=== PATIENT | male | born 1965 | race Two or more races ===

== ENCOUNTER 2024-12-28 14:51 | Outpatient (AMB) | payer OTHER, SELFPAY ==
--- NOTE | 2024-12-28 15:08 | MHC.PC.OV ---
Vital Signs 12/28/24 15:14 Height 6 ft 1 in Weight 215 lb 2 oz BMI 28.4 BP 123/77 Blood Pressure Location Lt brachial Position Sitting Respiration 12 Pulse 93 Pulse Source Pulse Oximeter Temp 97.3 F Temp Source Temporal Artery Scan Pulse Oximetry (%) 96 Oxygen Delivery Method Room Air Intake Visit Reasons: [facility] // PE Intake Note: New patient to establish care and requesting Physical Rn First Assist Required: No Allergies No Known Allergies Allergy (Verified 12/28/24 15:10) Medication List - Last Reconciled 12/28/24 by Suman Casey MD pantoprazole 40 mg PO DAILY Tobacco use date assessed: 12/28/24 Dental Screening Dental Screen Date: 12/28/24 Did you have a dental visit in the last 12 months?: No Did you have a dental problem in the last 6 months where you did not have access to dental care?: No Was dental information given to patient?: Patient has dentist HPI [facility] // PE HPI Details New Patient? ?? Prior PCP:? No PCP x 10 yrs Last office visit/CPE:? 10 yrs Acute issue(s):? Drinking issues and he is concerned. ?? PMHx:? Alcoholism, Asthma, Carpal Tunnel, Acid Reflux SurgHx:? Carpal Tunnel FHx:?Mom: Alzheimers. Dad: None SocHx: Quit cigs 20 yrs ago. EtOH: up to 5 dr per day. MJ Rarely. No other drugs Anx/Dep screening neg but pt feels overwhemed sometimes. Had tried Zoloft but caused drowsiness. [facility] Medical History No pertinent family history Asthma Surgical History History of carpal tunnel surgery Social History (Updated 12/28/24 @ 15:18 by Linda Siddiqi MA) Household Members: Spouse Both parents involved: No Caregiver staying overnight: No Housing: House Are you a primary critical care transport nurse to a significant other at home: No Do you presently have visiting nurse or other home services: No 75 years or older and lives alone: No Alcohol intake: current Alcohol intake frequency: a few times a week Patient Tobacco Use Status: Never used Tobacco e-Cigarette/Vaping Use: Never Used Second Hand Smoke Exposure: No service: No Current occupational status: employed Current occupation: self employed Cognitive needs: No Hearing needs: No Vision needs: Yes (wear glasses) Questionnaire PHQ-9 Over the last 2 weeks, how often have you been bothered by any of the following problems? 1. Little interest or pleasure in doing things: not at all 2. Feeling down, depressed, or hopeless: not at all 3. Trouble falling or staying asleep, or sleeping too much: not at all 4. Feeling tired or having little energy: not at all 5. Poor appetite or overeating: not at all 6. Feeling bad about yourself - or that you are a failure or have let yourself or your family down: not at all 7. Trouble concentrating on things, such as reading the newspaper or watching television: not at all 8. Moving or speaking so slowly that other people could have noticed. Or the opposite - being so fidgety or restless that you have been moving around a lot more than usual: not at all 9. Thoughts that you would be better off or of hurting yourself in some way: not at all Total score: 0 Depression Screening Interpretation: Negative Depression Screening Done: Yes 20998 - PHQ-9 Billing: Yes Source: Developed by Drs. Yordy Doughrety, Cris Jasmine, Brian Venegas and colleagues, with an educational javi from [email or web address] Thrive Questionnaire Date Thrive assessed: 12/28/24 I am a: Patient What is your living situation today?: I have a steady place to live Within the past 12 months, did the food you bought not last and you didn't have the money to get more?: Never true Within the past 12 months, did you worry whether your food would run out before you got money to buy more?: Never true Do you have trouble paying for medicines?: No Do you have trouble getting transportation to medical appointments?: No Do you have trouble paying your heating and electricity bill?: No Do you have trouble taking care of your child, family member or friend?: No Do you have trouble with day-to-day activities such as bathing, preparing meals, shopping, managing finances, etc.?: No Are you currently unemployed and looking for a job?: No Are you interested in more education?: No Please select the resources that you would like help with: None Currently or been in a relationship where the following occur: No concerns reported THRIVE Score: 0 AUDIT C Alcohol Use Questionnaire (AUDIT-C) 1. How often do you have a drink containing alcohol?: 4 or more times a week 2. How many drinks containing alcohol do you have on a typical day when you are drinking?: 3 or 4 3. How often do you have six or more drinks on one occasion?: Weekly Total Score: 8 JANIYA-7 AMB Questionnaire JANIYA-7 Date JANIYA - 7 assessed: 12/28/24 Feeling nervous, anxious, or on edge: 0 = Not at all Not being able to stop or control worryin = Not at all Worrying too much about different things: 0 = Not at all Trouble relaxin = Not at all Being so restless that it is hard to sit still: 0 = Not at all Becoming easily annoyed or irritable: 1 = Several days Feeling afraid as if something awful might happen: 0 = Not at all Total JANIYA-7 score (0-4 normal; 5-9 mild; 10-14 moderate; 15-21 severe): 1 Source: Developed by Drs. Yordy Dougherty, Cris Jasmine, Brian Venegas and colleagues, with an educational javi from [email or web address]. JANIYA-7 Assessment Billing JANIYA-7 Assessment Tool: JANIYA-7 Assessment 91361 Review of Systems Const Denies chills, Denies fatigue, Denies fever(s), Denies headache(s) and Denies weakness ENT Denies dizziness and Denies headache(s) Card Denies chest pain, Denies lightheadedness, Denies dyspnea and Denies other (Palpitations) Resp Denies cough, Denies dyspnea, Denies wheezing and Denies other ( shortness of breath) Musc Denies numbness and Denies tingling Neuro Denies dizziness, Denies headache(s), Denies numbness, Denies tingling, Denies paresthesias and Denies weakness Psych Denies anxiety and Denies depression Endo Denies fatigue Aller/Immun Denies wheezing Physical exam (Primary Care) Vital Signs: Last Vital Signs Temp 97.3 F 12/28/24 15:14 Pulse 93 12/28/24 15:14 Resp 12 12/28/24 15:14 BP 123/77 12/28/24 15:14 Pulse Ox 96 12/28/24 15:14 Oxygen Delivery Method Room Air 12/28/24 15:14 BMI result Body Mass Index 28.4 Tobacco/Smoking Status: Tobacco use Status Tobacco use date assessed 12/28/24 12/28/24 15:12 Patient Tobacco Use Status Never used Tobacco 12/28/24 15:18 e-Cigarette/Vaping Use Never Used 12/28/24 15:18 PHQ-9: PHQ-9 Score PHQ-9: Total score 0 12/28/24 15:19 Depression Screening Interpretation: Negative Thrive Assessment: Date of Thrive Assessment Date Thrive assessed 12/28/24 12/28/24 15:12 Currently or been in a relationship where the following occur: No concerns reported Const General: no acute distress and well developed Nutritional Appearance: well nourished Orientation/consciousness: patient oriented x3 HENMT Head: Yes normocephalic and Yes atraumatic Eyes General: appearance normal, both eyes and all related structures Pupils: Equal, round and reactive pupils present EOM: EOMs intact bilaterally Resp Effort & Inspection: normal respiratory effort Auscultation: clear to auscultation bilaterally Cardio Rate: regular rate Rhythm: regular rhythm Heart sounds: S1 normal heart sound present, S2 normal heart sound present, no gallops, no murmurs and no rubs Neuro General: patient oriented x3 and gait normal Cranial nerves: Yes Equal, round and reactive pupils present Psych Affect: normal affect Coding Level of Care Code New Pt Level 4 (49031) Diagnoses Alcohol abuse F10.10 Asthma J45.909 Anxiety F41.9 GERD (gastroesophageal reflux disease) K21.9 Carpal tunnel syndrome G56.00 Laboratory exam ordered as part of routine general medical examination Z00.00 Additional Codes JANIYA-7 Assessment Billing - JANIYA-7 Assessment Tool: JANIYA-7 Assessment 59760 ([id number]) PHQ-9 - 78818 - PHQ-9 Billing: Yes ([id number]) Assessment & Plan Assessment & Plan (1) Alcohol abuse: Code(s): F10.10 - Alcohol abuse, uncomplicated Category: Social Hx Plan: Patient drinking about 5 drinks per day. Will have him work on weaning down and he can try some clonidine for mild withdrawal symptoms We did discuss the [facility] but he does not try that yet. Will follow-up at next visit (2) Asthma: Code(s): J45.909 - Unspecified asthma, uncomplicated Category: Medical Plan: History of asthma Lungs are clear today Stable (3) Anxiety: Code(s): F41.9 - Anxiety disorder, unspecified Category: Medical Plan: History of anxiety and patient has tried Zoloft in the past which he did not like. Using clonidine for withdrawal symptoms in his may help Anxiety as well. Offered a therapist but patient says he has had 1 in the past and that it stopped being helpful. He will let me know if he changes his mind (4) GERD (gastroesophageal reflux disease): Code(s): K21.9 - Gastro-esophageal reflux disease without esophagitis Category: Medical Plan: History of GERD and uses pantoprazole Continue pantoprazole (5) Carpal tunnel syndrome: Code(s): G56.00 - Carpal tunnel syndrome, unspecified upper limb Category: Medical Plan: S/p carpal tunnel surgery Stable (6) Laboratory exam ordered as part of routine general medical examination: Code(s): Z00.00 - Encounter for general adult medical examination without abnormal findings Category: Medical Plan: Check labs Orders: Orders Comprehensive [place]. Panel Fast Today Z00.00 - Encounter for general adult medical examination without abnormal findings UA CC w/rflx Micro + Cult Today Z00.00 - Encounter for general adult medical examination without abnormal findings Complete Blood Count Auto Diff Today Z00.00 - Encounter for general adult medical examination without abnormal findings Microalbumin, Random (w Creat) Today I10 - Essential (primary) hypertension Lipid Panel Today Z00.00 - Encounter for general adult medical examination without abnormal findings Prostate Specific Antigen Scr Today Z12.5 - Encounter for screening for malignant neoplasm of prostate TSH reflex Free T4 Today Z00.00 - Encounter for general adult medical examination without abnormal findings Medications: New clonidine HCl 0.1 mg PO TID PRN 90 tabs 0RF withdrawal symptoms/Anxiety Symptoms 30 days
[2024-12-28 15:14] VITALS: BP 123/77; PULSE 93; RESP 12; TEMP 36.3; O2SAT 96; BMI 28.4
--- OUTSIDE RECORDS SUMMARY | 2024-12-28 15:43 | XMS_ITS | Clinical Summary ---
Author Organization [facility] [address] Address [address] [place] [address] Phone Care Team Providers Care Log Chipper Operator Name Role Phone Lynnette Goel MD Primary Care Provider Allergies Active Allergy Reactions Criticality Noted Date Comments Other 09/24/2010 Other Reaction(s): Runny Nose/Rhinitis Seasonal Allergies Medications naltrexone (DEPADE) 50 mg tablet Take 1 Tablet by mouth daily. Dx alcohol dependence 3 Active fluticasone HFA (FLOVENT HFA) 220 mcg/actuation inhaler Inhale 2 Puffs into the lungs 2 times daily. 3 Active albuterol HFA (PROAIR HFA ; PROVENTIL HFA ; VENTOLIN HFA) 90 mcg/actuation inhaler Inhale 2 puffs by mouth if needed. 4 Active albuterol 2.5 mg /3 mL (0.083 %) nebulizer solution Take 3 mL (2.5 mg total) by nebulization if needed. 4 Active ibuprofen (ADVIL,MOTRIN) 200 mg tablet Take 4 tablets (800 mg total) by mouth every 8 (eight) hours if needed for moderate pain. Active pantoprazole (PROTONIX) 40 mg EC tablet Take 1 tablet (40 mg total) by mouth 1 (one) time each day. 90 tablet 5 Active Active Problems Problem Noted Date Diagnosed Date Toenail fungus 07/30/2024 Alcohol dependence (CMS/HCC V24, CMS/HCC V28) GERD with esophagitis 01/28/2020 Positive UZAIR (antinuclear antibody) 01/23/2017 Carpal tunnel syndrome, bilateral 01/16/2017 PVD (peripheral vascular disease) ([facility] V24) 05/22/2016 Groin mass 09/14/2010 Overweight 08/29/2010 Depression 07/18/2008 Overview (06/13/2024): No suicide attempts, no hospitalzations Allergic rhinitis 10/12/2005 Asthma 10/12/2005 Immunizations Name Administration Dates Next Due H1N1 Inj Preservative Free 05/10/2009 Influenza trivalent, with pr eservative (Fluzone; Afluria) 6mo and older 04/14/2012,05/10/2009 Td, Unspecified 02/02/2004 Tdap Tetanus diptheria acell ular pertussis (Boostrix; Adacel) 7yo and older 10/22/2013 Surgical History Surgery Date Site/Laterality Comments COLONOSCOPY 2016 PROCEDURE: HISTORICAL COLONOSCOPY; COMMENT: no polyps UPPER GASTROINTESTINAL ENDOSCOPY 02/21/2020 PROCEDURE: [place] UPPER GI ENDOSCOPY PERFORMED; COMMENT: 2 cm hiatal hernia, otherwise normal findings on PPI treatment. CARPAL TUNNEL RELEASE Bilateral PROCEDURE: HISTORICAL CARPAL TUNNEL REL VASECTOMY PROCEDURE: [place] VASECTOMY UNI/BI SPX W/POSTOP SEMEN EXAMS Medical History Medical History Date Comments Unspecified asthma(493.90) 10/12/2005 DX:Un specified asthma(493.90) Allergic rhinitis, cause unspecified 10/12/2005 DX:Allergic rhinitis, cause unspecified Alcohol dependence ([facility] V24, [facility] V28) DX:Alcohol dependence ([facility]) Right arm pain 12/12/2015 DX:Right arm kim n PVD (peripheral vascular dis ease) ([facility] V24) 05/22/2016 DX:PVD (peripheral vascular disease) ([facility]) Family History Medical History Relation Name Comments Arthritis Father Blindness Neg Hx Cataracts Neg Hx Colon cancer Neg Hx Esophageal cancer Neg Hx Glaucoma Neg Hx Macular degeneration Neg Hx Stomach cancer Neg Hx Strabismus Neg Hx Relation Name Status Comments Brother 1 Alive depression Brother 2 Alive depression Brother 3 Alive depression Brother 4 Alive Father (Age 82) Mother (Age 83) dementia Sister 1 Alive depression Sister 2 Alive Son 1 Alive depression Son 2 Alive Social History Tobacco Use Types Packs/Day Years Used Date Smoking Tobacco: Former Cigarettes Q uit: 05/19/2000 Smokeless Tobacco: Never Alcohol Use Standard Drinks/Week Comments Yes 18 (1 standard drink = 0.6 oz pu re alcohol) Sex and Gender Information Value Date Recorded Sex Assigned at Not on file Legal Sex Male 2:59 AM EST Gender Identity Not on file Sexual Orientation Not on file Obstetrics History Last Filed Vital Signs Vital Sign Reading Time Taken Comments Blood Pressure 132/83 07/30/2024 10:47 AM EDT Pulse 87 07/30/2024 10:47 AM EDT Temperature 36.8 C (98.2 F) 07/30/2024 10:47 AM EDT Respiratory Rate - - Oxygen Saturation - - Inhaled Oxygen Concentration - - Weight 104 kg (229 lb) 07/30/2024 10:47 AM EDT Height 185.4 cm (6' 1 ) 07/30/2024 10:47 AM EDT Body Mass Index 30.21 07/30/2024 10:47 AM EDT Plan of Treatment Health Maintenance Due Date Last Done Comments Hepatitis A Vaccines (1 of 2 - Risk 2-dose series) 1985 Hepatitis B Vaccines (1 of 3 - 19+ 3-dose series) 1985 Pneumococcal Vaccine: 50+ Years (1 of 2 - PCV) 1985 Social Influencers of Health Screening 04/21/2022 COVID-19 Vaccine (3 - season) 2024 06/05/2021, 10/29/2020 Depression Screening 05/19/2024 Influenza Vaccine (#1) 2025 8, 04/14/2012, 05/10/2009, Additional history exists Colorectal Cancer Screening: Colonoscopy 03/14/2027 03/14/2017 Cholesterol Screening (Lipid Panel) 11/23/2027 11/22/2022 DTaP,Tdap,and Td Vaccines (4 - Td or Tdap) 07/27/2034 07/27/2024, 10/22/2013, 02/02/2004 HIV Screening Completed 03/26/2019 Hepatitis C Screening Completed 03/26/2019 Zoster Vaccines Completed 01/07/2022, 09/24/2021 HIB Vaccines Aged Out No longer eligi ble based on patient's age to complete this topic HPV Vaccines Aged Out No longer eligi ble based on patient's age to complete this topic IPV Vaccines Aged Out No longer eligi ble based on patient's age to complete this topic MMR Vaccines Aged Out No longer eligi ble based on patient's age to complete this topic Meningococcal ACWY Vaccine Aged Out N o longer eligible based on patient's age to complete this topic Meningococcal B Vaccine Aged Out No l onger eligible based on patient's age to complete this topic RSV Immunization Patients Under 20 months Aged Out No longer eligible based on patient's age to complete this topic Varicella Vaccines Aged Out No longer eligible based on patient's age to complete this topic Procedures Procedure Name Priority Date/Time Associated Diagnosis Comments LIPID PANEL Routine 11/22/2022 HEPATITIS C SCREENING Routine 03/26/2019 HIV SCREENING Routine 03/26/2019 COLONOSCOPY Routine 03/14/2017 from Last 3 Months or Most Recently Relevant to Health Maintenance Results * (ABNORMAL) Lipid panel (11/22/2022) [facility] LDL/HDL Ratio 3 0 - 4 Triglycerides 197(A) 0 - 150 mg/dL Cholesterol 209(A) 0 - 200 mg/dL HDL 61 >=40 mg/dL LDL Cholesterol 109(A) 0 - 100 mg/dL Blood Venous blood specimen / Unknown Historical Provider LAB BLOOD ORDERABLES Jessica l Result * HIV Screening (03/26/2019) [facility] HIV Screening abstracted Historical Provider HEALTH MAINTENANCE Final Result * Hepatitis C Screening (03/26/2019) [facility] Hepatitis C Screening abstracted Historical Provider HEALTH MAINTENANCE Final Result * Colonoscopy (03/14/2017) [facility] Colonoscopy no interpretation , abstracted Anatomical Region Laterality Modality Other Historical Provider HEALTH MAINTENANCE Final Result from Last 3 Months or Most Recently Relevant to Health Maintenance Insurance [facility] Care Teams Log Chipper Operator Relationship Specialty Start Date End Date Lynnette Goel MD [address] [place] [address] [phone] PCP - General Internal Medicine 09/07/24
== END 2024-12-28 15:45 | disposition home or self-care (01) ==
PROVIDERS: PCP Family Medicine; Visit Provider Family Medicine
DX: F10.10 Alcohol abuse, uncomplicated (principal); J45.909 Unspecified asthma, uncomplicated; F41.9 Anxiety disorder, unspecified; K21.9 Gastro-esophageal reflux disease without esophagitis; G56.00 Carpal tunnel syndrome, unspecified upper limb; Z00.00 Encounter for general adult medical examination without abnormal findings

== ENCOUNTER → 2024-12-28 14:51 | Outpatient (BNVA) | payer SELFPAY | PROVIDERS: Visit Provider Family Medicine | DX: Z00.00 Encounter for general adult medical examination without abnormal findings (principal); F10.10 Alcohol abuse, uncomplicated; J45.909 Unspecified asthma, uncomplicated; F41.9 Anxiety disorder, unspecified; K21.9 Gastro-esophageal reflux disease without esophagitis; G56.00 Carpal tunnel syndrome, unspecified upper limb | CPT/HCPCS: 96127 ==

== ENCOUNTER 2025-01-03 13:05 | Outpatient (REF) | payer OTHER, SELFPAY ==
--- OUTSIDE RECORDS SUMMARY | 2025-01-03 14:01 | XMS_ITS | Clinical Summary ---
Author Organization [facility] [address] [facility] [address] Address [address] [place] [address] Phone Care Team Providers Care Hand Stapler Name Role Phone Lynnette Goel MD Primary [...] syndrome, bilateral 01/16/2017 PVD [place]peripheral vascular disease) [place] [place] 05/22/2016 Groin mass 09/14/2010 Overweight 08/29/2010 [...] no polyps UPPER GASTROINTESTINAL ENDOSCOPY 02/21/2020 PROCEDURE: [place] UPPER GI ENDOSCOPY PERFORMED; COMMENT: 2 cm hiatal hernia, otherwise normal findings on PPI treatment. CARPAL TUNNEL RELEASE Bilateral PROCEDURE: HISTORICAL CARPAL TUNNEL REL VASECTOMY PROCEDURE: [place] VASECTOMY UNI/BI SPX W/POSTOP SEMEN EXAMS Medical History Medical History Date Comments Unspecified asthma(493.90) 10/12/2005 DX:Un specified asthma(493.90) Allergic rhinitis, cause unspecified 10/12/2005 DX:Allergic rhinitis, cause unspecified Alcohol dependence ([facility] [place], [facility] V28) DX:Alcohol dependence ([facility]) Right arm pain 12/12/2015 DX:Right arm kim n PVD (peripheral vascular dis ease) ([facility] [place]) 05/22/2016 DX:PVD (peripheral vascular disease) ([facility]) Family History Medical History Relation Name Comments [...] Maintenance Results * (ABNORMAL) Lipid panel (11/22/2022) [facility] LDL/HDL Ratio 3 0 - 4 Triglycerides 197(A) 0 - 150 mg/dL Cholesterol 209(A) 0 - 200 mg/dL HDL 61 >=40 mg/dL LDL Cholesterol 109(A) 0 - 100 mg/dL Blood Venous blood specimen / Unknown Historical Provider LAB BLOOD ORDERABLES Jessica l Result * HIV Screening (03/26/2019) [facility] HIV Screening abstracted Historical Provider HEALTH MAINTENANCE Final Result * Hepatitis C Screening (03/26/2019) [facility] Hepatitis C Screening abstracted Historical Provider HEALTH MAINTENANCE Final Result * Colonoscopy (03/14/2017) [facility] Colonoscopy no interpretation , abstracted Anatomical Region Laterality Modality Other Historical Provider HEALTH MAINTENANCE Final Result from Last 3 Months or Most Recently Relevant to Health Maintenance Insurance [facility] Care Teams Hand Stapler Relationship Specialty Start Date End Date Lynnette Goel MD [address] [place] [address] [phone] PCP - General Internal Medicine 09/07/24
[2025-01-03 18:15] LABS: MANUAL DIFF FLAG NO
[2025-01-03 18:19] LABS: Hematocrit 39.8 % (42.0-52.0); Hemoglobin 13.6 g/dl (14.0-18.0); Imm Gran Abs Auto 0.02 X10*3/uL (0.00-0.03); Imm Gran Pct Auto 0.4 % (0.0-0.4); Lymphocytes Absolute Auto 1.9 X10*3/uL (1.2-4.9); Mean Corpuscular HGB Conc 34.2 g/dl (31.0-36.0); Mean Corpuscular Hemoglobin 33.3 pg (27.0-33.0); Mean Corpuscular Volume 97.5 fL (80.0-98.0); NRBC Abs Auto 0.000 X10*3/uL (0.0-0.012); NRBC Pct Auto 0.0 /100WBC (0.0-0.2); Platelet Count 267 X10*3/uL (160-400); Red Blood Count 4.08 X10*6/uL (4.60-5.80); White Blood Count 5.5 X10*3/uL (4.8-10.8)
[2025-01-03 18:21] LABS: Appearance Urine Turbid; Glucose Urine UA Negative (Negative); PH 5.5 (5.0-9.0); Specific Gravity - Urine 1.025 (1.005-1.025)
[2025-01-03 18:37] LABS: Alanine Aminotransferase 60 U/L (0-40); Albumin Level 4.5 g/dL (3.5-5.0); Alkaline Phosphatase 52 U/L (39-117); Anion Gap 12 (12-20); Aspartate Amino Transferase 43 U/L (5-37); Blood Urea Nitrogen 12 mg/dL (9-16); Calcium 9.1 mg/dL (8.4-10.2); Carbon Dioxide 27 mmol/L (22-29); Chloride 107 mmol/L (96-108); Cholesterol 224 mg/dL (<200); Estimated Glomerular Filt Rate > 60; HDL Cholesterol 46 mg/dL (>40); Potassium 4.1 mmol/L (3.3-5.1); Sodium 142 mmol/L (135-145); Total Protein 7.2 g/dL (6.5-8.0); Triglycerides 304 mg/dL (<150)
[2025-01-03 18:45] LABS: Microalbum/Creatinine Ratio Ur 5.2 ug/mg cr (<30)
== END 2025-01-03 13:06 | disposition home or self-care (01) ==
LOC: HO.WFDLDS 13:05
PROVIDERS: Visit Provider Family Medicine
DX: Z00.00 Encounter for general adult medical examination without abnormal findings (principal); Z12.5 Encounter for screening for malignant neoplasm of prostate; I10 Essential (primary) hypertension
CPT/HCPCS: 36415; 80053; 80061; 81003; 82043; 82570; 84153; 84443; 85025

== ENCOUNTER 2025-04-08 13:37 | Outpatient (AMB) | payer OTHER, SELFPAY ==
--- NOTE | 2025-04-08 13:45 | MHC.PC.OV ---
Vital Signs 04/08/25 13:51 Height 6 ft 1 in Weight 220 lb 8 oz BMI 29.1 BP 110/70 Blood Pressure Location Rt brachial Position Sitting Respiration 16 Pulse 108 H Pulse Source Pulse Oximeter Temp 99.4 F Temp Source Oral Pulse Oximetry (%) 98 Oxygen Delivery Method Room Air Intake Visit Reasons: CPE with f/u labs and health maint. 30 mins Intake Note: patient is scheduled for CPE Parking Enforcement Manager Required: No Funeral Sales Manager: Present Accompanied by: Spouse Allergies No Known Allergies Allergy (Verified 04/08/25 13:47) Tobacco use date assessed: 04/08/25 Dental Screening Dental Screen Date: 04/08/25 Did you have a dental visit in the last 12 months?: Yes Did you have a dental problem in the last 6 months where you did not have access to dental care?: Yes Was dental information given to patient?: No HPI CPE with f/u labs and health maint. 30 mins HPI Details 60 y/o male presents for a CPE with f/u labs and health maint. Labs drawn 01/03/25. Reviewed labs with pt. Mild anemia. Elevated liver enzymes - AST 43, ALT 60. Triglycerides 304. TC 224. LDL 118. HDL 46. PSA 1.18. Fasting glucose 105. HPI Comments History of Present Illness Details Documentation assistance for Suman Casey MD, was provided by Freddie Mejia, Information Clerk Broker[employer] on 04/08/2025 at 2:13 PM EST. I, Dr. Casey, have read, observed, and verified documentation. [facility] Medical History No pertinent family history Asthma Surgical History History of carpal tunnel surgery Social History Household Members: Spouse Both parents involved: No Caregiver staying overnight: No Housing: House Are you a primary care support representative to a significant other at home: No Do you presently have visiting nurse or other home services: No 75 years or older and lives alone: No Alcohol intake: current Alcohol intake frequency: a few times a week Patient Tobacco Use Status: Never used Tobacco e-Cigarette/Vaping Use: Never Used Second Hand Smoke Exposure: No service: No Current occupational status: employed Current occupation: self employed Cognitive needs: No Hearing needs: No Vision needs: Yes (wear glasses) Questionnaire PHQ-9 Over the last 2 weeks, how often have you been bothered by any of the following problems? 1. Little interest or pleasure in doing things: not at all 2. Feeling down, depressed, or hopeless: not at all 3. Trouble falling or staying asleep, or sleeping too much: several days 4. Feeling tired or having little energy: several days 5. Poor appetite or overeating: not at all 6. Feeling bad about yourself - or that you are a failure or have let yourself or your family down: not at all 7. Trouble concentrating on things, such as reading the newspaper or watching television: not at all 8. Moving or speaking so slowly that other people could have noticed. Or the opposite - being so fidgety or restless that you have been moving around a lot more than usual: not at all 9. Thoughts that you would be better off or of hurting yourself in some way: not at all Total score: 2 Depression Screening Interpretation: Negative Depression Screening Done: Yes 42325 - PHQ-9 Billing: Yes Source: Developed by Drs. Yordy Dougherty, Cris Jasmine, Brian Venegas and colleagues, with an educational javi from [employer]. Thrive Questionnaire Date Thrive assessed: 04/08/25 I am a: Patient What is your living situation today?: I have a steady place to live Within the past 12 months, did the food you bought not last and you didn't have the money to get more?: Never true Within the past 12 months, did you worry whether your food would run out before you got money to buy more?: Never true Do you have trouble paying for medicines?: No Do you have trouble getting transportation to medical appointments?: No Do you have trouble paying your heating and electricity bill?: No Do you have trouble taking care of your child, family member or friend?: No Do you have trouble with day-to-day activities such as bathing, preparing meals, shopping, managing finances, etc.?: No Are you currently unemployed and looking for a job?: No Are you interested in more education?: No Please select the resources that you would like help with: None Currently or been in a relationship where the following occur: No concerns reported THRIVE Score: 0 AUDIT C Alcohol Use Questionnaire (AUDIT-C) 1. How often do you have a drink containing alcohol?: 4 or more times a week 2. How many drinks containing alcohol do you have on a typical day when you are drinking?: 5 or 6 3. How often do you have six or more drinks on one occasion?: Weekly Total Score: 9 Score Reviewed/Action Taken: Yes JANIYA-7 AMB Questionnaire JANIYA-7 Date JANIYA - 7 assessed: 04/08/25 Feeling nervous, anxious, or on edge: 0 = Not at all Not being able to stop or control worryin = Not at all Worrying too much about different things: 0 = Not at all Trouble relaxin = Not at all Being so restless that it is hard to sit still: 0 = Not at all Becoming easily annoyed or irritable: 3 = Nearly every day Feeling afraid as if something awful might happen: 0 = Not at all Total JANIYA-7 score (0-4 normal; 5-9 mild; 10-14 moderate; 15-21 severe): 3 Source: Developed by Drs. Yordy Dougherty, Cris Jasmine, Brian Venegas and colleagues, with an educational javi from [employer]. JANIYA-7 Assessment Billing JANIYA-7 Assessment Tool: JANIYA-7 Assessment 46896 ACT Questionnaire In the past 4 weeks, how much of the time did your asthma keep you from getting as much done at work, school or at home?: None of the time During the past 4 weeks, how often have you had shortness of breath?: 3-6 times a week During the past 4 weeks, how often did your asthma symptoms wake you up at night or earlier than usual in the morning?: Not at all During the past 4 weeks, how often have you had to use your rescue inhaler or nebulizer medication?: 1-2 times a week How would you rate your asthma control during the past 4 weeks?: Somewhat controlled ACT Interpretation: Positive Score: 18 Review of Systems Const Denies chills, Denies fatigue, Denies fever(s), Denies headache(s) and Denies weakness Eyes Denies change in vision ENT Denies dizziness, Denies headache(s), Denies hearing loss, Denies nasal congestion, Denies sinus pain, Denies sinus pressure and Denies sore throat Card Denies chest pain, Denies lightheadedness, Denies dyspnea and Denies other (palpitations) Resp Denies cough, Denies dyspnea and Denies wheezing GI Denies abdominal pain, Denies melena, Denies hematochezia, Denies change in bowel habits, Denies dyspepsia and Denies nausea Denies hematuria and Denies dysuria Musc Denies abnormal gait, Denies myalgias, Denies arthralgias, Denies numbness and Denies tingling Skin/Breast Denies rash, Denies unusual bruising and Denies wounds Neuro Denies abnormal gait, Denies dizziness, Denies headache(s), Denies memory loss, Denies numbness, Denies Sensory deficit (Neuro), Denies tingling and Denies weakness Psych Denies anxiety, Denies depression and Denies memory loss Endo Denies cold intolerance, Denies fatigue, Denies heat intolerance, Denies polydipsia and Denies polyuria Elvis/Lymph Denies easy bleeding and Denies easy bruising Aller/Immun Denies wheezing Physical exam (Primary Care) Vital Signs: Last Vital Signs Temp 99.4 F 04/08/25 13:51 Pulse 108 H 04/08/25 13:51 Resp 16 04/08/25 13:51 BP 110/70 04/08/25 13:51 Pulse Ox 98 04/08/25 13:51 Oxygen Delivery Method Room Air 04/08/25 13:51 BMI result Body Mass Index 29.1 Tobacco/Smoking Status: Tobacco use Status Tobacco use date assessed 04/08/25 04/08/25 13:55 Patient Tobacco Use Status Never used Tobacco 04/08/25 13:55 e-Cigarette/Vaping Use Never Used 04/08/25 13:55 PHQ-9: PHQ-9 Score PHQ-9: Total score 2 04/08/25 13:55 Depression Screening Interpretation: Negative Thrive Assessment: Date of Thrive Assessment Date Thrive assessed 04/08/25 04/08/25 13:55 Currently or been in a relationship where the following occur: No concerns reported Const General: no acute distress, well developed, alert and awake Nutritional Appearance: well nourished Orientation/consciousness: patient oriented x3 HENMT Head: Yes normocephalic and Yes atraumatic Ears: hearing grossly normal bilaterally and TM's normal bilaterally General nose exam: Normal external nose present and Normal nares present Mouth: Normal oral and palatal mucosa present and moist mucous membranes Teeth and gingiva: dentition normal Throat: Yes posterior oropharynx normal Eyes General: appearance normal, both eyes and all related structures Pupils: Equal, round and reactive pupils present and Pupil accommodation reflex normal EOM: EOMs intact bilaterally Neck Neck: Yes normal visual inspection, Yes no lymphadenopathy and Yes trachea midline Thyroid: Thyroid normal Carotids: no bruits Lymphatic: no lymphadenopathy noted Chest Chest palpation & inspection: normal inspection of the chest Resp Effort & Inspection: normal respiratory effort Auscultation: clear to auscultation bilaterally Cardio Rate: regular rate Rhythm: regular rhythm Heart sounds: S1 normal heart sound present, S2 normal heart sound present, no gallops, no murmurs and no rubs Bruits: no abdominal aortic bruits and no carotid bruits GI Palpation (GI): No Abdominal aortic bruit present, Soft to palpation, nontender, No hepatosplenomegaly present and No Rebound tenderness present Auscultation: normal bowel sounds General: Yes no CVA tenderness Back/Spine/Pelvis Back: no CVA tenderness Cervical Spine: cervical ROM normal and No Cervical spine tenderness Thoracic/Lumbar Spine: thoraco-lumbar ROM normal, No pain with thoraco-lumbar ROM, No thoracic spinal tenderness and No lumbar spinal tenderness Skin Lesions: no lesions Rashes: no rashes Trauma: no lacerations or abrasions Wounds: no wounds Nails: normal Neuro General: patient oriented x3 Cranial nerves: Yes Equal, round and reactive pupils present Cognition (Neuro): normal cognition Gait exam (Neuro): Normal gait present Motor exam (neuro): 5/5 motor strength present throughout Sensory Exam: No Sensory deficit (Neuro) Deep tendon reflexes (DTR's): Right patellar reflex intensity grade: 2+ and Left patellar reflex intensity grade: 2+ Extrem General: Yes normal to inspection and No edema Psych Appearance: grossly normal Affect: normal affect Attitude: cooperative Thought process: Normal thought process present Coding Level of Care Code Est Pt Level 3 (66888) Est Pt Prev Care 40-64y(40924) Diagnoses Adult general medical exam Z00.00 Mild anemia D64.9 Elevated liver enzymes R74.8 Elevated LDL cholesterol level E78.00 Elevated fasting glucose R73.01 Alcohol abuse F10.10 Screening for colon cancer Z12.11 Screening for prostate cancer Z12.5 Additional Codes Asthma Control Questionnaire - ACT Interpretation: Positive ([id number]) JANIYA-7 Assessment Billing - JANIYA-7 Assessment Tool: JANIYA-7 Assessment 48974 ([id number]) PHQ-9 - 57033 - PHQ-9 Billing: Yes ([id number]) Assessment & Plan Assessment & Plan (1) Adult general medical exam: Code(s): Z00.00 - Encounter for general adult medical examination without abnormal findings Category: Medical Plan: 60-year-old male presents for complete physical exam Encouraged healthy diet with active lifestyle and plenty of exercise (2) Mild anemia: Code(s): D64.9 - Anemia, unspecified Category: Medical Plan: Mild anemia likely secondary to alcohol use Encouraged weaning and cessation (3) Elevated liver enzymes: Code(s): R74.8 - Abnormal levels of other serum enzymes Category: Medical Plan: Elevated liver enzymes likely secondary to alcohol use as well as overweight status and possible dehydration Encouraged weaning and cessation of alcohol and he will be referred to the [facility] Encouraged good hydration and weight loss (4) Elevated LDL cholesterol level: Code(s): E78.00 - Pure hypercholesterolemia, unspecified Category: Medical Plan: Encouraged a diet low in saturated fats and cholesterol Will recheck in about 3 months (5) Elevated fasting glucose: Code(s): R73.01 - Impaired fasting glucose Category: Medical Plan: Mildly elevated fasting blood sugar Encouraged a diet lower in sugars and starches Encouraged weaning & cessation of alcohol (6) Alcohol abuse: Code(s): F10.10 - Alcohol abuse, uncomplicated Category: Social Hx Plan: Patient still drinking and would like a referral to the comprehensive [facility] Referred (7) Screening for colon cancer: Code(s): Z12.11 - Encounter for screening for malignant neoplasm of colon Category: Medical Plan: Patient had a colonoscopy around age 51. Due next year for follow-up He declines a referral at this time. We will discuss again next year (8) Screening for prostate cancer: Code(s): Z12.5 - Encounter for screening for malignant neoplasm of prostate Category: Medical Plan: PSA was within normal range Continue current medications Orders: Orders Lipid Panel Today E78.00 - Pure hypercholesterolemia, unspecified, Z00.00 - Encounter for general adult medical examination without abnormal findings Comprehensive Mobile. Panel Fast Today E78.00 - Pure hypercholesterolemia, unspecified, Z00.00 - Encounter for general adult medical examination without abnormal findings Hemoglobin A1c Today R73.01 - Impaired fasting glucose Referrals Addiction Medicine Referral F10.10 - Alcohol abuse, uncomplicated
[2025-04-08 13:51] VITALS: BP 110/70; PULSE 108; RESP 16; TEMP 37.4; O2SAT 98; BMI 29.1
--- OUTSIDE RECORDS SUMMARY | 2025-04-08 14:02 | XMS_ITS | Clinical Summary ---
Author Organization [facility] [address] [facility] [address] Address [address] [place] [address] Phone Care Team Providers Care Choir Teacher Name Role Phone Lynnette Goel MD Primary [...] syndrome, bilateral 01/16/2017 PVD (peripheral vascular disease) ([facility] V24) 05/22/2016 Groin mass 09/14/2010 Overweight 08/29/2010 Depression 07/18/2008 Overview (06/13/2024): No suicide attempts, no hospitalzations Allergic rhinitis 10/12/2005 Asthma 10/12/2005 Immunizations Immunization Administration Dates Next Due H1N1 Inj Preservative Free 05/10/2009 Influenza trivalent, with pr eservative (Fluzone; Afluria) 6mo and older 04/14/2012,05/10/2009 Td, Unspecified 02/02/2004 Tdap Tetanus diptheria acell ular pertussis (Boostrix; Adacel) 7yo and older 10/22/2013 Surgical History Surgery Date Site/Laterality Comments COLONOSCOPY 2016 PROCEDURE: HISTORICAL COLONOSCOPY; COMMENT: no polyps UPPER GASTROINTESTINAL ENDOSCOPY 02/21/2020 PROCEDURE: ME UPPER GI ENDOSCOPY PERFORMED; COMMENT: 2 cm hiatal hernia, otherwise normal findings on PPI treatment. CARPAL TUNNEL RELEASE Bilateral PROCEDURE: HISTORICAL CARPAL TUNNEL REL VASECTOMY PROCEDURE: ME VASECTOMY UNI/BI SPX W/POSTOP SEMEN EXAMS Medical History Medical History Date Comments Unspecified asthma(493.90) 10/12/2005 DX:Un specified asthma(493.90) Allergic rhinitis, cause unspecified 10/12/2005 DX:Allergic rhinitis, cause unspecified Alcohol dependence ([facility] V24, [facility] V28) DX:Alcohol dependence ([facility]) Right arm pain 12/12/2015 DX:Right arm kim n PVD (peripheral vascular dis ease) ([facility] V24) 05/22/2016 DX:PVD (peripheral vascular disease) ([facility]) Family History Medical History Relation Name [...] Years Used Date Smoking Tobacco: Former Cigarettes 0 Q uit: 05/19/2000 Smokeless Tobacco: Never Alcohol [...] Years (1 of 2 - PCV) 1985 RSV Immunization Adult Patients (1 - Risk 50-74 years 1-dose series) 2016 Social Influencers of Health Screening 04/21/2022 Depression Screening 05/19/2024 COVID-19 Vaccine ( season) 2025 06/05/2021, 10/29/2020 Influenza Vaccine (#1) 2025 8, 04/14/2012, 05/10/2009, [...] Maintenance Results * (ABNORMAL) Lipid panel (11/22/2022) [facility] LDL/HDL Ratio 3 0 - 4 Triglycerides 197(A) 0 - 150 mg/dL Cholesterol 209(A) 0 - 200 mg/dL HDL 61 >=40 mg/dL LDL Cholesterol 109(A) 0 - 100 mg/dL Blood Venous blood specimen / Unknown us Historical Provider LAB BLOOD ORDERABLES Jessica l Result * HIV Screening (03/26/2019) [facility] HIV Screening abstracted us Historical Provider HEALTH MAINTENANCE Final Result * Hepatitis C Screening (03/26/2019) [facility] Hepatitis C Screening abstracted us Historical Provider HEALTH MAINTENANCE Final Result * Colonoscopy (03/14/2017) [facility] Colonoscopy no interpretation , abstracted Anatomical Region Laterality Modality Other us Historical Provider HEALTH MAINTENANCE Final Result from Last 3 Months or Most Recently Relevant to Health Maintenance Insurance [facility] Care Teams Choir Teacher Relationship Specialty Start Date End Date Lynnette Goel MD [address] [place] [id number] PCP - General Internal Medicine 09/07/24
== END 2025-04-08 14:37 | disposition home or self-care (01) ==
LOC: HO.HMCFM 13:38
PROVIDERS: PCP Family Medicine; Visit Provider Family Medicine
DX: Z00.00 Encounter for general adult medical examination without abnormal findings (principal); D64.9 Anemia, unspecified; R74.01 Elevation of levels of liver transaminase levels; E78.00 Pure hypercholesterolemia, unspecified; R73.01 Impaired fasting glucose; F10.10 Alcohol abuse, uncomplicated; Z12.5 Encounter for screening for malignant neoplasm of prostate

== ENCOUNTER → 2025-04-08 13:37 | Outpatient (BNVA) | payer OTHER, SELFPAY | PROVIDERS: PCP Family Medicine; Visit Provider Family Medicine | DX: Z00.00 Encounter for general adult medical examination without abnormal findings (principal); R74.8 Abnormal levels of other serum enzymes; D64.9 Anemia, unspecified; E78.00 Pure hypercholesterolemia, unspecified; R73.01 Impaired fasting glucose; F10.10 Alcohol abuse, uncomplicated | CPT/HCPCS: 96127; 96160 ==